=== PATIENT | female | born 1980 | race Caucasian/White ===

== ENCOUNTER 2016-07-30 21:41 | Emergency (ER) | payer OTHER ==
[~2016-07-30] VITALS: Ht 160 cm; Wt 75.7 kg
[~2016-07-30 21:41] MED LIST: PROMETHAZINE HC25 M1 PO
[2016-07-30 21:47] VITALS: BP 158/101
[2016-07-30] MEDS ORDERED: FLEXERIL10 MG PO (23:59)
[2016-07-30] MEDS ORDERED: PERCOCET 5/31 TABLET PO (23:59)
== END 2016-07-31 00:35 | disposition home or self-care (01) ==
LOC: EME 21:41
DX: M54.9 Dorsalgia, unspecified (principal)
CPT/HCPCS: 99281; 99284

== ENCOUNTER 2016-08-04 17:50 | Emergency (ER) | payer OTHER ==
[~2016-08-04] VITALS: Ht 160 cm; Wt 77.2 kg
[~2016-08-04 17:50] MED LIST changes: +FLEXERIL10 MG PO; +PERCOCET 5/31 TABLET PO
[2016-08-04 19:36] LABS: ADD MIUA? YES; BILIRUBIN NEGATIVE; BLOOD NEGATIVE; COLOR YELLOW ((YELLOW)); GLUCOSE (STRIP) NEGATIVE; KETONES NEGATIVE; LEUKOCYTES SMALL; NITRITE NEGATIVE; PROTEIN (STRIP) 30; SPECIFIC GRAVITY 1.015 (1.000-1.030); UROBILINOGEN 0.2 MG/DL (0.2-1.0)
[2016-08-04 19:51] LABS: BACTERIA RARE /HPF; EPITHELIAL CELLS 3+ /HPF; MUCUS TRACE /LPF; RED BLOOD CELLS 0-5 /HPF (0-5); UCUL ADDED? NO; WHITE BLOOD CELLS 0-5 /HPF (0-5)
[2016-08-04 20:02] LABS: CASTS NONE SEEN /LPF; CRYSTALS NONE SEEN
[2016-08-04] MEDS ORDERED: NORCO 5/3251 TABLET PO (20:26)
[2016-08-04] MEDS ORDERED: SKELAXIN800 MG PO (20:26)
[2016-08-04 20:34] VITALS: BP 121/79
== END 2016-08-04 20:35 | disposition home or self-care (01) ==
LOC: EME 17:50
PROVIDERS: Physician Assistant
DX: M51.24 Other intervertebral disc displacement, thoracic region (principal); F17.200 Nicotine dependence, unspecified, uncomplicated
CPT/HCPCS: 81003; 99281; 99284

== ENCOUNTER 2016-11-17 18:40 | Emergency (ER) | payer OTHER ==
[~2016-11-17] VITALS: Ht 160 cm; Wt 74.9 kg
[~2016-11-17 18:40] MED LIST changes: +NORCO 5/3251 TABLET PO; +SKELAXIN800 MG PO
[2016-11-17] MEDS ORDERED: PERCOCET 5/31 TABLET PO (19:37)
[2016-11-17] MEDS ORDERED: LIDODERM 5% P1 PATCH TD (19:37)
[2016-11-17] MEDS ORDERED: FLEXERIL10 MG PO (19:37)
[2016-11-17 20:26] VITALS: BP 149/92
== END 2016-11-17 20:48 | disposition home or self-care (01) ==
LOC: EME 18:40
DX: S39.012A Strain of muscle, fascia and tendon of lower back, initial encounter (principal); X50.9XXA Other and unspecified overexertion or strenuous movements or postures, initial encounter; Y93.E6 Activity, residential relocation; M79.604 Pain in right leg; M79.605 Pain in left leg; F17.200 Nicotine dependence, unspecified, uncomplicated
CPT/HCPCS: 72100; 99281; 99284; J1885

== ENCOUNTER 2016-12-01 21:30 | Emergency (ER) | payer OTHER ==
[~2016-12-01] VITALS: Ht 160 cm; Wt 76.9 kg
[~2016-12-01 21:30] MED LIST changes: +LIDODERM 5% P1 PATCH TD
[2016-12-01 23:13] VITALS: BP 158/104
== END 2016-12-01 23:19 | disposition home or self-care (01) ==
LOC: EME 21:30
PROC: 0HQGXZZ Repair Left Hand Skin, External Approach (ICD-10-PCS; principal; 2016-12-01)
DX: S61.012A Laceration without foreign body of left thumb without damage to nail, initial encounter (principal); W27.4XXA Contact with kitchen utensil, initial encounter; Y93.G3 Activity, cooking and baking; F17.200 Nicotine dependence, unspecified, uncomplicated
CPT/HCPCS: 99281; 99284

== ENCOUNTER 2017-05-18 17:51 | Emergency (ER) | payer OTHER ==
[~2017-05-18] VITALS: Ht 160 cm; Wt 72.6 kg
[2017-05-18] MEDS ORDERED: VALIUM2 MG PO (19:32)
[2017-05-18] MEDS ORDERED: LIDODERM 5% P1 PATCH TD (19:32)
[2017-05-18] MEDS ORDERED: ULTRAM50 MG PO (19:32)
[2017-05-18 20:07] VITALS: BP 157/100
== END 2017-05-18 20:11 | disposition home or self-care (01) ==
LOC: EME 17:51
DX: M54.5 Low back pain (principal); F17.200 Nicotine dependence, unspecified, uncomplicated
CPT/HCPCS: 99281; 99283

== ENCOUNTER 2017-05-21 17:59 | Emergency (ER) | payer OTHER ==
[~2017-05-21] VITALS: Ht 160 cm; Wt 71.4 kg
[~2017-05-21 17:59] MED LIST changes: +ULTRAM50 MG PO; +VALIUM2 MG PO
[2017-05-21 18:23] VITALS: BP 151/98
[2017-05-21] MEDS ORDERED: ZOFRAN ODT8 MG PO (21:49)
[2017-05-21] MEDS ORDERED: VALIUM5 MG PO (21:49)
[2017-05-21] MEDS ORDERED: MOTRIN800 MG PO (21:49)
[2017-05-21] MEDS ORDERED: NORCO 7.5/321 TABLET PO (21:49)
== END 2017-05-21 22:23 | disposition home or self-care (01) ==
LOC: EME 17:59
DX: S29.012A Strain of muscle and tendon of back wall of thorax, initial encounter (principal); M51.34 Other intervertebral disc degeneration, thoracic region
CPT/HCPCS: 99281; 99283

== ENCOUNTER 2017-06-19 17:20 | Emergency (ER) | payer OTHER ==
[~2017-06-19] VITALS: Ht 160 cm; Wt 68.9 kg
[~2017-06-19 17:20] MED LIST changes: +MOTRIN800 MG PO; +NORCO 7.5/321 TABLET PO; +VALIUM5 MG PO; +ZOFRAN ODT8 MG PO
[2017-06-19 18:17] LABS: HEMATOCRIT 40.6 % (36.0-46.0); HEMOGLOBIN 13.6 G/DL (11.9-15.5); MCH 29.8 PG (29.0-34.0); MCHC 33.5 G/DL (30.0-36.0); RBC DIS.WIDTH-CV 12.9 % (11.8-14.6); RBC DIS.WIDTH-SD 42.2 % (39-53); RED BLOOD COUNT 4.56 M/uL (3.80-5.20)
[2017-06-19 18:26] LABS: ALBUMIN 4.6 g/dL (3.2-4.8)
[2017-06-19 18:27] LABS: CHLORIDE 107 mEq/L (99-109); POTASSIUM 4.4 mEq/L (3.7-5.4); SODIUM 141 mEq/L (136-147)
[2017-06-19 18:29] LABS: GLUCOSE 104 mg/dL (70-99); TOTAL PROTEIN 7.5 g/dL (6.4-8.3)
[2017-06-19 18:31] LABS: TOTAL BILIRUBIN 0.5 mg/dL (0.0-1.0)
[2017-06-19 18:32] LABS: ALKALINE PHOSPHATASE 85 IU/L (3-129)
[2017-06-19 18:33] LABS: CREATININE 0.9 mg/dL (0.6-1.3); GFR ESTIMATE (CALCULATED) > 59 mL/min/
[2017-06-19 18:34] LABS: AST (GOT) 15 IU/L (2-34); UREA NITROGEN (BUN) 12 mg/dL (9-23)
[2017-06-19 18:35] LABS: ALT (GPT) 17 IU/L (3-49)
[2017-06-19 18:43] LABS: QUANTITATIVE HCG < 4.0 MIU/ML
[2017-06-19 19:10] LABS: PLAT.SUFFICIENCY ADEQUATE; PLATELET COUNT 262 K/uL (156-360)
[2017-06-19 19:20] LABS: APPEARANCE SL.HAZY ((CLEAR)); BILIRUBIN NEGATIVE; BLOOD NEGATIVE; COLOR YELLOW ((YELLOW)); GLUCOSE (STRIP) NEGATIVE; KETONES NEGATIVE; LEUKOCYTES NEGATIVE; NITRITE NEGATIVE; PROTEIN (STRIP) NEGATIVE; SPECIFIC GRAVITY 1.021 (1.000-1.030); UROBILINOGEN 0.2 MG/DL (0.2-1.0)
[2017-06-19 19:29] LABS: BACTERIA NONE SEEN /HPF; EPITHELIAL CELLS RARE /HPF; MUCUS 1+ /LPF; RED BLOOD CELLS 0-5 /HPF (0-5); UCUL ADDED? NO; WHITE BLOOD CELLS 0-5 /HPF (0-5)
[2017-06-19 19:51] LABS: LIPASE 30 U/L (1.0-51.0)
[2017-06-19] MEDS ORDERED: MOTRIN800 MG PO (21:43)
[2017-06-19] MEDS ORDERED: ZOFRAN ODT8 MG PO (21:43)
[2017-06-19] MEDS ORDERED: BENTYL20 MG PO (21:43)
[2017-06-19 22:31] VITALS: BP 127/78
== END 2017-06-19 22:32 | disposition home or self-care (01) ==
LOC: EME 17:20
DX: R10.9 Unspecified abdominal pain (principal); R11.2 Nausea with vomiting, unspecified; R19.7 Diarrhea, unspecified; R03.0 Elevated blood-pressure reading, without diagnosis of hypertension; M54.41 Lumbago with sciatica, right side; G89.29 Other chronic pain; Z98.51 Tubal ligation status
CPT/HCPCS: 74177; 80053; 81003; 83690; 84702; 85027; 99281; 99285; J0500; J1885; J2405; J7120